=== PATIENT | female | born 1945 | race Caucasian/White ===

== ENCOUNTER → 2017-02-19 | Outpatient (REF) | payer OTHER ==
[~2017-02-19] MED LIST: ABIL2TAB2 PO; ACET500T37 PO; AMBI5TAB PO; ATIV1TAB10 PO; ATIV1TAB7 PO; BACITAB3 PO; BACL10TA2 PO; BENT10CA PO; BUPR10TASR PO; CARV6.25 PO; CLAR10CA3 PO; CYMB60CA3 PO; FLUT1SPR2; LEXA1TAB PO; LIDO5DIS36 TD; LORA10TA2 PO; MELA5TAB14 PO; MIRA3350 PO; OMEP20CA3 PO; RANI1TAB38 PO; REDCAP3 PO; TYLE325T5 PO; VITA-115 PO; VITA-130 PO; VITA10002 PO; VITA400T2 PO
[2017-02-19 11:20] LABS: FREE T4 0.93 NG/DL (0.76-1.46); T UPTAKE 30 % (30-39); THYROXINE (T4) 9.6 UG/DL (4.5-12.0); TOTAL PROTEIN 7.3 GM/DL (6.4-8.2)
[2017-02-19 11:37] LABS: VITAMIN B12 LEVEL 585 PG/ML (247-911)
[2017-02-19 11:38] LABS: FOLATE 21.1 NG/ML (>5.4)
[2017-02-22 08:06] LABS: VITAMIN E LEVEL 12.7 mg/L (6.5-21.5)
[2017-02-24 12:41] LABS: ALBUMIN 4.23 GM/DL (3.29-5.55); ALBUMIN % 57.9 % (55.8-66.1); GAMMA GLOBULIN % 14.2 % (11.1-18.8)
== END ==
LOC: M LABNEURO 08:54
PROVIDERS: ATTEND Psychiatry & Neurology Neurology
DX: G89.29 Other chronic pain (principal); M54.5 Low back pain; G25.0 Essential tremor; Z79.899 Other long term (current) drug therapy